=== PATIENT | male | born 1980 | race Caucasian/White ===

== ENCOUNTER 2019-07-24 12:57 | Emergency (ER) | payer BC, SELFPAY ==
--- NOTE | ~2019-07-24 | XR_ITS ---
XR hand RT min 3V 07/24/2019 13:22 INDICATION: Right hand pain PROCEDURE: 3 views right hand COMPARISON: No prior studies for comparison. FINDINGS: Fracture, dislocation or subluxation is not identified. The soft tissues appear within norm al limits. No foreign bodies are identified. IMPRESSION: 1: NO ACUTE BONE OR JOINT ABNORMALITY IDENTIFIED. Reviewed, dictated and finalized at location A.
[2019-07-24 13:00] VITALS: BP 146/85; PULSE 89; RESP 20; TEMP 37.4; O2SAT 99
--- NOTE | 2019-07-24 13:40 | ED.WOUNDLAC ---
HPI - Wound/Laceration General Chief Complaint: Wound/Laceration Stated Complaint: dog bite Time Seen by Provider: 07/24/19 13:18 Source: patient Mode of arrival: ambulatory Limitations: no limitations History of Present Illness HPI narrative: This patient is a 38 yo male right hand dominant who presents for evaluation of right hand pain , redness and swelling after a dog bite. Patient states yesterday his dog accidentally bit him on top of his right hand. He states he is unable to move his right second and fourth finger. He finally came to ER because he developed significant redness and swelling to his hand . He has wounds to his fingers that have been constantly bleeding. Related Data Allergies Allergy/AdvReac Type Severity Reaction Status Date / Time No Known Allergies Allergy Verified 07/24/19 13:03 Review of Systems Constitutional: Constitutional: Denies chills, Denies fever(s) and Denies weakness Gastrointestinal: Gastrointestinal: Reports nausea and Denies vomiting Integumentary/Breasts: Skin/Breast: Reports erythema PMFSH Past Medical History Medical History (Updated 07/24/19 @ 16:04 by Calli Gleason MD) No significant medical problems Exam Const: General: no acute distress and alert Orientation/consciousness: patient oriented x3 Resp: Effort & Inspection: normal respiratory effort Extrem: Other: right hand with significant swelling to dorsum of hand. he has lacerations over right second MCP and proximal index finger with serous drainage. There is redness to hand , no streaking upward, He is unable to extend second and 4th finger Psych: Mental Status: mental status grossly normal Course Consultations Consultation #1: I discussed patient with right hand with dog bite makes with redness and swelling to hand. He states patient can be discharged with antibiotics. He will see patient Thursday or Thursday to reevaluate. He states he can fix patient tendon as outpatient if needed. Date: 07/24/19 Time: 14:54 Vital Signs Vital signs: Vital Signs Temperature 99.3 F 07/24/19 13:00 Pulse Rate 89 07/24/19 13:00 Respiratory Rate 20 07/24/19 13:00 Blood Pressure 146/85 H 07/24/19 13:00 Pulse Oximetry 99 07/24/19 13:00 Temperature 99.3 F 07/24/19 13:00 Pulse Rate 89 07/24/19 15:34 Respiratory Rate 16 07/24/19 15:34 Blood Pressure 127/61 07/24/19 15:34 Pulse Oximetry 100 07/24/19 15:34 MDM - Wound/Laceration Lab Data Result diagrams: 07/24/19 13:50 07/24/19 13:50 Labs: Lab Results 07/24/19 07/24/19 Range/Units 13:50 13:50 WBC 8.7 (4.5-10.0) K/mm3 RBC 5.38 (4.6-6.20) M/mm3 Hgb 15.7 (14.0-18.0) g/dL Hct 45.9 (42.0-52.0) % MCV 85.3 (80-100) fl MCH 29.2 (26-34) pg MCHC 34.2 (32-36) g/dl RDW 13.6 (11.5-14.5) % Plt Count 261 (150-375) k/mm3 MPV 10.1 (7.4-10.4) fl Immature Gran % (Auto) 0.2 (0-0.5) % Neut % (Auto) 69.4 (45.5-73.1) % Lymph % (Auto) 19.2 (18.3-44.2) % [place] % (Auto) 9.9 H (2.6-8.5) % Eos % (Auto) 1.0 (0-4.4) % Baso % (Auto) 0.3 (0.2-1.2) % Lymph # (Auto) 1.66 (0.9-3.2) K/mm3 [place] # (Auto) 0.9 H (0.1-0.6) K/mm3 Eos # (Auto) 0.1 (0-0.3) K/mm3 Baso # (Auto) 0.0 (0.0-0.1) K/mm3 Abs Immat Gran (auto) 0.02 (0.00-0.031) K/mm3 Absolute Neuts (auto) 6.0 (1.3-6.7) K/mm3 Absolute Nucleated RBC 0.0 (0.0-0.012) K/mm3 Nucleated RBC % 0.0 (0.0-0.2) % Sodium 138 (137-145) mmol/L Potassium 3.9 (3.4-5.0) mmol/L Chloride 103 (98-107) mmol/L Carbon Dioxide 29 (22-30) mmol/L BUN 17 (9-20) mg/dL Creatinine 1.10 (0.7-1.3) mg/dL Estim Creat Clear Calc Not Reportable Estimated GFR > 60 (59 - ) Glucose 93 (75-110) mg/dL Calcium 8.6 (8.4-10.2) mg/dL Total Bilirubin 0.4 (0.2-1.3) mg/dL AST 36 (17-59) U/L ALT 22 (4-50) U/L Alkaline Phosphatase 99 (38-126) U/L C-Reactive Protein
[2019-07-24 14:00] LABS: Basophils Percent Auto 0.3 % (0.2-1.2); Eosinophils Absolute Auto 0.1 K/mm3 (0-0.3); Hematocrit 45.9 % (42.0-52.0); Hemoglobin 15.7 g/dL (14.0-18.0); Immature Granulocyte Absolute 0.02 K/mm3 (0.00-0.031); Immature Granulocyte Percent A 0.2 % (0-0.5); Lymphocytes Absolute Auto 1.66 K/mm3 (0.9-3.2); Lymphocytes Percent Auto 19.2 % (18.3-44.2); Mean Corpuscular HGB Conc 34.2 g/dl (32-36); Mean Corpuscular Hemoglobin 29.2 pg (26-34); Mean Corpuscular Volume 85.3 fl (80-100); Mean Platelet Volume 10.1 fl (7.4-10.4); Monocytes Absolute Auto 0.9 K/mm3 (0.1-0.6); Monocytes Percent Auto 9.9 % (2.6-8.5); Neutrophils Percent Auto 69.4 % (45.5-73.1); Platelet Count Result 261 k/mm3 (150-375); Red Blood Count 5.38 M/mm3 (4.6-6.20); Red Cell Distribution Width 13.6 % (11.5-14.5); White Blood Count 8.7 K/mm3 (4.5-10.0)
[2019-07-24] MEDS: AMPICILLIN SULB 3 GM/NS 100 ML 3 GM/100 ML VIAL IVPB (14:07)
[2019-07-24] MEDS: KETOROLAC 30 MG/ML VIAL (*BKC) IV PUSH (14:08)
[2019-07-24] MEDS: TETANUS,DIPHTHERIA,AC PERTUSSIS ADULT (0.5 ML) BOOSTRIX IM (14:08)
[2019-07-24 14:14] LABS: Alanine Aminotransferase 22 U/L (4-50); Albumin Level 4.3 g/dL (3.5-5.1); Alkaline Phosphatase 99 U/L (38-126); Aspartate Amino Transferase 36 U/L (17-59); Bilirubin,Total 0.4 mg/dL (0.2-1.3); Blood Urea Nitrogen 17 mg/dL (9-20); CRP 1.7 mg/dL (<1.0); Calcium 8.6 mg/dL (8.4-10.2); Carbon Dioxide 29 mmol/L (22-30); Chloride 103 mmol/L (98-107); Estimated Glomerular Filt Rate > 60; Glucose 93 mg/dL (75-110); Potassium 3.9 mmol/L (3.4-5.0); Sodium 138 mmol/L (137-145)
[2019-07-24 15:34] VITALS: BP 127/61; PULSE 89; RESP 16; O2SAT 100
== END 2019-07-24 16:27 | disposition home or self-care (01) ==
PROVIDERS: Emergency Provider General Practice
DX: S61.451A Open bite of right hand, initial encounter (principal); L08.9 Local infection of the skin and subcutaneous tissue, unspecified; W54.0XXA Bitten by dog, initial encounter; Z23 Encounter for immunization
CPT/HCPCS: 36415; 73130; 80053; 85025; 86140; 90471; 90715; 96365; 96375; 99284; J0295; J1885

== ENCOUNTER 2020-12-17 20:24 | Emergency (ER) | payer BC, SELFPAY ==
--- NOTE | ~2020-12-17 | XR_ITS ---
EXAMINATION: XR chest 1V portable DATE: 12/18/2020 00:17 INDICATION: COVID positive presenting with cough and shortness of breath. TECHNIQUE: frontal view of the chest was obtained. COMPARISON: None FINDINGS: Patchy airspace opacities throughout the right lung and in the left mid and lower lung zones suspicio us for COVID pneumonia. No pleural effusion or pneumothorax. The cardiomediastinal silhouette is norm al. IMPRESSION: 1. Patchy bilateral airspace opacities consistent with COVID pneumonia. Reviewed, dictated and finalized at location A.
--- NOTE | ~2020-12-17 | CT_ITS ---
EXAMINATION: CTA chest PE protocol DATE: 12/18/2020 01:05 INDICATION: Shortness of breath. Elevated d-dimer. COVID. TECHNIQUE: Computed tomography (CT) pulmonary angiogram of the chest was performed with 100 mL Omnipa que-350 intravenous contrast. Additional 3D reconstructions utilizing coronal maximum intensity proje ction (MIP) were performed. Automated exposure control and iterative reconstruction technique were em ployed. The dose-length product was 503.44 mGy-cm. COMPARISON: None FINDINGS: Good contrast opacification of the pulmonary arteries. There is mild streak artifact from dense contr ast in the superior vena cava and right atrium. Mild scattered respiratory motion artifact. No pulmon [place] embolism. Multiple focal regions of groundglass opacity scattered throughout both lungs. No septa l line thickening to suggest pulmonary edema. No pleural effusion. Heart size is normal. Thoracic aor ta is normal in caliber with no dissection. No pathologically enlarged thoracic lymphadenopathy. Visu alized upper abdomen and bones are unremarkable. IMPRESSION: 1. No pulmonary embolism. 2. Multiple focal region of groundglass opacity scattered throughout both lungs which is most suspici ous for pneumonia. Differential would include pulmonary hemorrhage, bronchiolitis obliterans, asymmet rical pneumonia, organizing pneumonia and nummular sarcoidosis. Reviewed, dictated and finalized at location A. IMPRESSION: 1. No pulmonary embolism. 2. Multiple focal region of groundglass opacity scattered throughout both lungs which is most suspicious for pneumonia. Differential would include pulmonary h emorrhage, bronchiolitis obliterans, asymmetrical pneumonia, organizing pneumon ia and nummular sarcoidosis.
[2020-12-17 20:37] VITALS: BP 130/64; PULSE 95; RESP 20; TEMP 36.6; O2SAT 98
[2020-12-17 20:59] LABS: Basophils Percent Auto 0.2 % (0.2-1.2); Hematocrit 46.3 % (42.0-52.0); Hemoglobin 16.2 g/dL (14.0-18.0); Immature Granulocyte Absolute 0.01 K/mm3 (0.00-0.031); Immature Granulocyte Percent A 0.2 % (0-0.5); Lymphocytes Absolute Auto 0.84 K/mm3 (0.9-3.2); Lymphocytes Percent Auto 19.2 % (18.3-44.2); Mean Corpuscular Hemoglobin 30.2 pg (26-34); Mean Corpuscular Volume 86.4 fl (80-100); Mean Platelet Volume 9.7 fl (7.4-10.4); Monocytes Absolute Auto 0.3 K/mm3 (0.1-0.6); Monocytes Percent Auto 7.1 % (2.6-8.5); Neutrophils Absolute Auto 3.2 K/mm3 (1.3-6.7); Neutrophils Percent Auto 73.3 % (45.5-73.1); Platelet Count Result 170 k/mm3 (150-375); Red Blood Count 5.36 M/mm3 (4.6-6.20); White Blood Count 4.4 K/mm3 (4.5-10.0)
[2020-12-17 21:13] LABS: Alanine Aminotransferase 34 U/L (4-50); Albumin Level 4.5 g/dL (3.5-5.1); Alkaline Phosphatase 67 U/L (38-126); Anion Gap 10 mmol/L (8-16); Aspartate Amino Transferase 53 U/L (17-59); Bilirubin,Total 0.3 mg/dL (0.2-1.3); Blood Urea Nitrogen 14 mg/dL (9-20); Calcium 8.2 mg/dL (8.4-10.2); Carbon Dioxide 27 mmol/L (22-30); Chloride 100 mmol/L (98-107); Estimated CRCL calculation 97 ml/min; Estimated Glomerular Filt Rate > 60; Glucose 131 mg/dL (65-110); Lipase 254 U/L (23-300); Potassium 3.8 mmol/L (3.4-5.0); Sodium 137 mmol/L (137-145)
[2020-12-17 21:55] LABS: Add Urine Microscopic? YES; Appearance Urine Clear (Clear); Bilirubin Urine Negative (Negative); Blood Urine Negative (Negative); Color Urine Yellow (Yellow); Glucose Urine UA Negative (Negative); Ketones Urine Trace mg/dL (Negative); Leukocyte Esterase Ur Negative LEU/UL (Negative); Mucus Urine Few /lpf; Nitrate Urine Negative (Negative); Protein Urine 2+ mg/dL (Negative); RBC Urine 0-2 /hpf (0-2); Urobilinogen Urine Negative mg/dL (<2.0)
[2020-12-17 22:03] LABS: Specific Grav Ur 1.034 (1.001-1.035)
[2020-12-17 23:08] VITALS: BP 138/61; PULSE 85; O2SAT 98
--- NOTE | 2020-12-17 23:49 | ECG_ITS ---
Measurements Intervals [place] Rate: 87 P: 44 IN: 157 QRS: 18 QRSD: 89 T: 26 QT: 334 QTc: 402 Interpretive Statements SINUS RHYTHM BASELINE ARTIFACT- I, II, III, AVR, AVL, AVF, V1-V6 NORMAL ECG Electronically Signed On 12-18-2020 7:50:08 CDT by Jdaen Khan D.O.
--- NOTE | 2020-12-17 23:52 | ED.NAVMDI ---
HPI - Nausea/Vomiting/Diarrhea General Chief complaint: Nausea/Vomiting/Diarrhea Stated complaint: dizziness Time Seen by Provider: 12/17/20 23:39 Source: patient and RN notes reviewed Mode of arrival: ambulatory Limitations: no limitations History of Present Illness HPI Narrative: This is a 40 year old COVID + male who presents for evaluation of nausea and vomiting. Patient states he developed symptoms of COVID 1 week ago but he was found to be positive 2 days ago. He started with severe chills and low grade fever. She also reports he is developing mild cough with some shortness of breath. He denies chest pain . He came to ER today because he has been having nausea and vomiting and he had some dizziness today. He describes his dizziness as feeling off balance. He was able to eat crackers and broth earlier but started dry heaving afterwards. Denies diarrhea or abdominal pain. Related Data Allergies Allergy/AdvReac Type Severity Reaction Status Date / Time No Known Allergies Allergy Verified 07/24/19 13:03 Review of Systems Review of Systems: All systems reviewed & are unremarkable except as noted in HPI and below PMFSH Past Medical History Medical History (Updated 12/18/20 @ 02:03 by Calli Gleason MD) No significant medical problems Surgical History Surgical History (Updated 12/17/20 @ 23:56 by Calli Gleason MD) No pertinent past surgical history Social History Social History (Updated 12/17/20 @ 23:56 by Calli Gleason MD) Smoking status: Never smoker Alcohol intake: current Alcohol use details: occasional Substance use: never Exam Const: General: no acute distress and alert Orientation/consciousness: patient oriented x3 HENMT: Ears: TM's normal bilaterally Eyes: Pupils: Equal, round and reactive pupils present EOM: EOMs intact bilaterally Chest: Chest palpation & inspection: normal inspection of the chest Resp: Effort & Inspection: normal respiratory effort and no retractions Auscultation: clear to auscultation bilaterally Cardio: Rate: regular rate Rhythm: regular rhythm Heart sounds: no murmurs GI: GI Palp: Yes Soft to palpation, Yes Tenderness to palpation present (GI) (epigastric), No Guarding due to palpation present (GI) and No Rigid due to palpation Auscultation: normal bowel sounds Skin: General skin exam: normal color Rashes: no rashes Neuro: General: patient oriented x3, moves all extremities and CN's II-XI intact bilaterally Psych: Mental Status: mental status grossly normal Affect: normal affect Course Reevaluation(s) Reevaluation #1: I Discussed with patient that he has been found to have pneumonia due to covid. PAtient is not requiring oxygen . With ambulation he was able to maintain 95 % on room air. no respiratory distress. He has had no vomiting and he states he feels better. I Discussed discharge plan and he was given return precautions. Date: 12/18/20 Time: 02:00 Vital Signs Vital signs: Vital Signs Temperature 97.8 F 12/17/20 20:37 Pulse Rate 95 12/17/20 20:37 Respiratory Rate 20 12/17/20 20:37 Blood Pressure 130/64 12/17/20 20:37 Pulse Oximetry 98 12/17/20 20:37 Temperature 97.8 F 12/17/20 20:37 Pulse Rate 102 H 12/18/20 03:11 Respiratory Rate 18 12/18/20 03:11 Blood Pressure 115/60 12/18/20 03:11 Pulse Oximetry 97 12/18/20 03:11 MDM - Nausea/Vomiting/Diarrhea Lab Data Attestation: I reviewed the patient's lab results. Result diagrams: 12/17/20 20:44 12/17/20 20:44 Labs: Lab Results 12/17/20 12/17/20 12/17/20 Range/Units 20:44 20:44 20:44 WBC 4.4 L (4.5-10.0) K/mm3 RBC 5.36 (4.6-6.20) M/mm3 Hgb 16.2 (14.0-18.0) g/dL Hct 46.3 (42.0-52.0) % MCV 86.4 (80-100) fl MCH 30.2 (26-34) pg MCHC 35.0 (32-36) g/dl RDW 12.0 (11.5-14.5) % Plt Count 170 (150-375) k/mm3 MPV 9.7 (7.4-10.4) fl Immature Gran % (Aut
[2020-12-18 00:19] LABS: CRP 3.3 mg/dL (<1.0)
[2020-12-18 00:29] VITALS: BP 101/80; PULSE 97; RESP 19; O2SAT 97
[2020-12-18] MEDS: LACTATED RINGERS 1,000 ML 999 ML IV CONT (00:30)
[2020-12-18] MEDS: ONDANSETRON INJ 4 MG/2 ML VIAL IV PUSH (00:30)
[2020-12-18] MEDS: PANTOPRAZOLE SODIUM IV 40 MG VIAL IV PUSH (00:30)
[2020-12-18 03:11] VITALS: BP 115/60; PULSE 102; RESP 18; O2SAT 97
== END 2020-12-18 03:12 | disposition home or self-care (01) ==
PROVIDERS: Emergency Medicine; Emergency Provider General Practice; PCP Nurse Practitioner Family
DX: U07.1 COVID-19 (principal); J12.82 Pneumonia due to coronavirus disease 2019; R11.2 Nausea with vomiting, unspecified
CPT/HCPCS: 36415; 71045; 71275; 80053; 81001; 83690; 85025; 85380; 86140; 93005; 96361; 96374; 96375; 99284; C9113; J2405; J7120; Q9967

== ENCOUNTER 2021-12-29 23:37 | Emergency (ER) | payer BC, SELFPAY ==
--- NOTE | ~2021-12-29 | XR_ITS ---
EXAMINATION: XR chest 2V DATE: 12/30/2021 00:11 INDICATION: Cough. Chest pain. TECHNIQUE: Frontal and lateral views of the chest were obtained. COMPARISON: Chest single view 12/17/2020, chest CT 12/18/2020 FINDINGS: The chest demonstrates clear lungs without pneumonia, pleural effusion, or pneumothorax. Th e heart size is normal. IMPRESSION: 1. No acute cardiopulmonary disease. Reviewed, dictated and finalized at location A.
[2021-12-29 23:40] VITALS: BP 141/81; PULSE 101; RESP 18; O2SAT 100
[2021-12-29 23:51] VITALS: BP 135/94; PULSE 95; RESP 15; O2SAT 99
[2021-12-29 23:52] VITALS: PULSE 102; RESP 22; O2SAT 99
--- NOTE | 2021-12-29 23:56 | ED.NAVMDI ---
HPI - Nausea/Vomiting/Diarrhea General Chief complaint: Nausea/Vomiting/Diarrhea Stated complaint: HEART PALPITATIONS Time Seen by Provider: 12/29/21 23:48 History of Present Illness HPI Narrative: This is a 41-year-old male with no significant past medical history, presenting to the emergency department complaining of nausea vomiting and diarrhea throughout the day today. He denies hematemesis, hematochezia or melena. The patient states he has had some intermittent cough associated with myalgias of the left side and 3 episodes of vomiting, each time he attempts to eat. This is accompanied by generalized weakness without focal deficit. He denies known sick contacts and is not vaccinated for COVID or pneumonia. Related Data Allergies Allergy/AdvReac Type Severity Reaction Status Date / Time No Known Allergies Allergy Verified 12/29/21 23:50 Review of Systems Review of Systems: CONSTITUTIONAL: Chills denies fever, or sweats. EYES: Denies visual changes, redness, or discharge. ENT: Rhinorrhea, congestion denies sore throat, or otalgia. CARDIOVASCULAR: Denies chest pain, palpitations, or edema. RESPIRATORY: Cough denies cough or dyspnea. GASTROINTESTINAL: Nausea, vomiting, diarrhea denies abdominal pain, GENITOURINARY: Denies dysuria or hematuria. SKIN: Denies rash or itching. MUSCULOSKELETAL: Myalgia; denies back pain, joint pain, NEUROLOGIC: Denies headache, numbness, dizziness, or weakness. PSYCHIATRIC: Denies anxiety or depression. PMFSH Past Medical History Medical History (Updated 12/30/21 @ 01:47 by Jitendra Escoto MD) No significant medical problems Surgical History Surgical History (Updated 12/17/20 @ 23:56 by Calli Gleason MD) No pertinent past surgical history Social History Social History (Updated 12/17/20 @ 23:56 by Calli Gleason MD) Smoking status: Never smoker Alcohol intake: current Alcohol use details: occasional Substance use: never Exam Narrative: GENERAL: Well-appearing, well-nourished, and in no acute distress. HEAD: Normocephalic, atraumatic. EYES: PERRLA and EOMI. ENT: Nares clear, no rhinorrhea or epistaxis. Mucous membranes moist. Oropharynx without tonsillar hypertrophy exudate or other lesions. CHEST: Clear to auscultation. No respiratory distress. No wheezes rales or rhonchi HEART: Regular rate and rhythm. No murmur heard. Normal peripheral pulses. ABDOMEN: Soft, nontender, nondistended, normal active bowel sounds. EXTREMITIES: Normal range of motion. No edema. SKIN: Warm, dry, no rash. NEURO: No focal deficits. Alert and oriented x3. PSYCH: Normal mood and affect. Course Course Emergency Course: 01:20 - Labs show a white blood cell count of 11. Chemistries grossly unremarkable the patient has tested negative for flu and COVID. Chest x-ray does not show any concerning changes. On reevaluation, the patient states he felt some left-sided chest and arm pain while undergoing orthostatic vital signs. He otherwise feels somewhat improved. Will obtain an EKG and troponin. 01:50 - EKG and troponin are unremarkable. Discussed findings with the patient. Will discharge with Zofran as needed. Discussed return and emergency precautions including signs/symptoms of intractable vomiting and respiratory distress. The patient voiced understanding and is comfortable with the plan. All questions answered to his satisfaction. Vital Signs Vital signs: Vital Signs Pulse Rate 101 H 12/29/21 23:40 Respiratory Rate 18 12/29/21 23:40 Blood Pressure 141/81 H 12/29/21 23:40 Pulse Oximetry 100 12/29/21 23:40 Oxygen Delivery Room Air 12/29/21 23:40 Pulse Rate 101 H 12/29/21 23:40 Respiratory Rate 18 12/29/21 23:40 Blood Pressure 141/81 H 12/29/21 23:40 Pulse Oximetry 100 12/29/21 23:40 Oxygen Delivery Room Air 12/29/21 23:40 MDM - Nausea/Vomiting/Diarrhea MDM Narrative Medical decision making narrative: Plan: Labs, imaging, IV fluids
[2021-12-30] VITALS (9 sets, daily range): BP systolic 120–138; BP diastolic 75–103; PULSE 87–105; RESP 16–25; O2SAT 96–99
--- NOTE | 2021-12-30 00:01 | PC.NURSE ---
Patient taken to xray.
[2021-12-30 00:20] LABS: Glucose Point of Care 99 mg/dl (65-105)
[2021-12-30 00:32] LABS: Alanine Aminotransferase 26 U/L (6-50); Albumin Level 4.7 g/dL (3.5-5.1); Alkaline Phosphatase 84 U/L (38-126); Anion Gap 14 mmol/L (8-16); Aspartate Amino Transferase 40 U/L (17-59); Bilirubin,Total 0.6 mg/dL (0.2-1.3); Blood Urea Nitrogen 14 mg/dL (9-20); Calcium 8.9 mg/dL (8.4-10.2); Carbon Dioxide 29 mmol/L (22-30); Chloride 98 mmol/L (98-107); Estimated CRCL calculation 75 ml/min; Estimated Glomerular Filt Rate > 60; Glucose 103 mg/dL (65-110); Potassium 3.4 mmol/L (3.4-5.0); Sodium 141 mmol/L (137-145)
[2021-12-30] MEDS: SODIUM CHLORIDE 0.9% IV 1,000 ML 999 ML IV CONT (00:34)
[2021-12-30] MEDS: ONDANSETRON HCL ODT 4 MG TABLET PO (00:34)
[2021-12-30 00:55] LABS: Basophils Percent Auto 0.4 % (0.2-1.2); Eosinophils Absolute Auto 0.1 K/mm3 (0-0.3); Eosinophils Percent Auto 0.9 % (0-4.4); Hematocrit 44.3 % (42.0-52.0); Hemoglobin 15.1 g/dL (14.0-18.0); Immature Granulocyte Absolute 0.05 K/mm3 (0.00-0.031); Immature Granulocyte Percent A 0.4 % (0-0.5); Lymphocytes Absolute Auto 2.77 K/mm3 (0.9-3.2); Lymphocytes Percent Auto 24.6 % (18.3-44.2); Mean Corpuscular HGB Conc 34.1 g/dl (32-36); Mean Corpuscular Hemoglobin 30.3 pg (26-34); Mean Corpuscular Volume 88.8 fl (80-100); Mean Platelet Volume 10.1 fl (7.4-10.4); Monocytes Absolute Auto 0.7 K/mm3 (0.1-0.6); Monocytes Percent Auto 6.4 % (2.6-8.5); Neutrophils Absolute Auto 7.6 K/mm3 (1.3-6.7); Neutrophils Percent Auto 67.3 % (45.5-73.1); Platelet Count Result 292 k/mm3 (150-375); Red Blood Count 4.99 M/mm3 (4.6-6.20); Red Cell Distribution Width 12.9 % (11.5-14.5); White Blood Count 11.3 K/mm3 (4.5-10.0)
--- NOTE | 2021-12-30 01:16 | PC.NURSE ---
Crackers and water given for PO challenge.
[2021-12-30 01:17] LABS: Influenza A QL RT-PCR Negative (Negative); Influenza B QL RT-PCR Negative (Negative); SARS-CoV-2 RNA PCR Negative
--- NOTE | 2021-12-30 01:25 | ECG_ITS ---
Measurements Intervals [place] Rate: 83 P: 58 MT: 179 QRS: 45 QRSD: 91 T: 46 QT: 365 QTc: 430 Interpretive Statements SINUS RHYTHM WITH SINUS ARRHYTHMIA COMPARED TO ECG 12/18/2020 00:47:41 SINUS ARRHYTHMIA NOW PRESENT Electronically Signed On 12-31-2021 12:51:13 CDT by Marjan Martinez M.D.
[2021-12-30 01:40] LABS: Troponin I < 0.012 ng/mL (0.000-0.034)
== END 2021-12-30 02:02 | disposition home or self-care (01) ==
PROVIDERS: Emergency Provider Preventive Medicine Aerospace Medicine; PCP Nurse Practitioner Family
DX: J11.1 Influenza due to unidentified influenza virus with other respiratory manifestations (principal); R11.2 Nausea with vomiting, unspecified; Z20.822 Contact with and (suspected) exposure to COVID-19; Z28.310 Unvaccinated for COVID-19
CPT/HCPCS: 36415; 71046; 80053; 82948; 84484; 85025; 87502; 93005; 96360; 99284; A9270; C9803; J7030; U0003; U0005